=== PATIENT | male | born 1980 | race Caucasian/White ===

== ENCOUNTER 2016-05-07 12:50 | Emergency (ER) | payer MEDICARE, SELFPAY ==
[2016-05-07] MEDS ORDERED: Sodium Chloride 0.9% 10 ML Syringe FLUSH PRN (13:12)
[2016-05-07] MEDS ORDERED: Sodium Chloride 0.9% 1,000 ML IV ONE (13:12)
[2016-05-07 13:42] LABS: CHLORIDE,CL 104 mEq/L (98-106); SODIUM,NA 143 mEq/L (136-145)
--- NOTE | 2016-05-07 13:51 | EDM.PDOC ---
ED HPI SEIZURE COMPLAINT - General Chief Complaint: Syncope Stated Complaint: syncope Time Seen by Provider: 05/07/16 13:07 Source of Information: Reports: Patient History Limitations: Reports: No limitations - History of Present Illness INITIAL COMMENTS - FREE TEXT/NARRATIVE: Patient stated he was at work, and wasnt feeling well. He had desided to go home sick when the next thing he knew he woke up on the gound. He has an abrasion and swelling of his left cheek. Patient states he feels fine now, and has no further symptoms Symptom Onset Date: 05/07/16 Symptom Onset Time: 13:00 Timing/Duration: Reports: minutes: Event Occurred (Where): work Event (Witnessed/Unwitnessed): witnessed Location: Reports: face Severity: severe Pre Event Symptom(s): Reports: nausea/vomiting Event Symptoms: Reports: nausea/vomiting Post Event Symptoms: Reports: confused Associated Injuries: Reports: face - Related Data Allergies/ADRs: Allergies Allergy/AdvReac Type Severity Reaction Status Date / Time dust Allergy Swollen Uncoded 05/07/16 12:58 Eyes Home Meds: Home Meds . [No Known Home Meds] 10/27/15 [History] Past Medical History - Past Health History Medical/Surgical History: Denies Medical/Surgical History Social & Family History - Tobacco Use Smoking Status *Q: Never Smoker - Caffeine Use Caffeine Use: Reports: Soda - Recreational Drug Use Recreational Drug Use: No ED ROS GENERAL - Review of Systems Review Of Systems: See Below Constitutional: Reports: no symptoms HEENT: Reports: No symptoms Respiratory: Reports: No Symptoms Cardiovascular: Reports: No symptoms Endocrine: Reports: no symptoms GI/Abdominal: Reports: No symptoms Musculoskeletal: Reports: no symptoms Skin: Reports: erythema, lesions Neurological: Reports: No Symptoms Psychiatric: Reports: No symptoms Hematologic/Lymphatic: Reports: no symptoms Immunologic: Reports: no symptoms - Physical Exam Exam: See Below Exam Limited By: No limitations General Appearance: alert, no apparent distress Eye Exam: bilateral eye: PERRL Ears: normal external exam, normal canal Nose: normal inspection Throat/Mouth: Normal inspection Head Exam: facial abrasions, facial ecchymosis, facial swelling Neck: normal inspection Respiratory/Chest: no respiratory distress Cardiovascular: normal peripheral pulses GI/Abdominal: normal bowel sounds (Male) Exam: No hernia Rectal (Males) Exam: Normal exam Neuro Exam (Abbreviated): alert, oriented Back Exam: normal inspection Extremities: normal inspection Psychiatric: normal affect Skin Exam: Warm, Dry, Intact Course - Vital Signs Last Recorded V/S: Last Vital Signs Temp 97.3 F 05/07/16 12:55 Pulse 88 05/07/16 12:55 Resp 16 05/07/16 12:55 BP 154/97 H 05/07/16 13:30 Pulse Ox 98 05/07/16 12:55 Orthostatic Blood Pressure [ 154/81 Standing] Orthostatic Blood Pressure [ 153/98 Sitting] Orthostatic Blood Pressure [ 154/88 Supine] - Orders/Labs/Meds Orders: Active Orders 24 hr Category Date Time Status Orthostatic Vital Signs [RC] ASDIRECTED Care 05/07/16 13:10 Active Chest 2V [CR] Stat Exams 05/07/16 13:31 Taken Chest 2V w Apical Lordotic [CR] Stat Exams 05/07/16 13:21 Stop Req Head wo Cont [CT] Stat Exams 05/07/16 13:53 Taken CBC WITH AUTO DIFF [HEME] Stat Lab 05/07/16 13:31 Results MANUAL DIFFERENTIAL QA/NC [HEME] Stat Lab 05/07/16 13:31 Results Sodium Chloride 0.9% [Saline Flush] Med 05/07/16 13:12 Active 10 ml FLUSH ASDIRECTED PRN Saline Lock Insert [OM.PC] Routine Oth 05/07/16 13:12 Ordered EKG 12 Lead [EK] Routine Ther 05/07/16 13:16 Ordered Medication Orders Sodium Chloride (Saline Flush) 10 ml FLUSH ASDIRECTED PRN PRN Reason: Keep Vein Open Labs: Laboratory Tests 05/07/16 05/07/16 Range/Units 13:31 13:31 WBC 5.3 (5.0-10.0) 10^3/uL RBC 5.04 (4.50-6.00) 10^6/uL Hgb 14.3 (14.0-18.0) g/dL Hct 42.8 (40.0-54.0) % MCV 84.9 (82.0-94.0) fL MCH 28.4 (27.0-32.0) pg MCHC 33.4 (33.0-38.0) g/dL RDW Coeff of Chaparro 12.8 (11.0-15.0) % Plt Count 305 (150-400) 10^3/uL Add Manual Diff Yes Sodium 143 (136-145) mEq/L Potassium 3.3 L (3.5-5.0) mEq/L Chloride 104 (98-106) mEq/L Carbon Dioxide 28 (21-32) mmol/L BUN 9 (7-18) mg/dL Creatinine 0.8 (0.7-1.3) mg/dL Est Cr Clr Drug Dosing 130.54 mL/min Estimated GFR (MDRD) > 60 (>=60) mL/min Glucose 102 H (75-99) mg/dL Calcium 8.5 (8.4-10.1) mg/dL Meds: Medications Generic Name Dose Route Start Last Admin Trade Name Freq PRN Reason Stop Dose Admin Sodium Chloride 10 ml 05/07/16 13:12 Saline Flush FLUSH ASDIRECTED PRN Keep Vein Open Discontinued Medications Generic Name Dose Route Start Last Admin Trade Name Freq PRN Reason Stop Dose Admin Sodium Chloride 1,000 mls @ 999 mls/hr 05/07/16 13:12 05/07/16 13:43 Normal Saline IV 05/07/16 14:12 999 mls/hr .BOLUS ONE Administration Departure - Departure Time of Disposition: 14:28 Disposition: Home, Self-Care 01 Condition: good Clinical Impression: Syncopal episodes Forms: ED Department Discharge Additional Instructions: I find nothing that would cause your syncopal episode. Follow up with your regular doctor. Drink plenty of fluids. Eat regularly. Return to ER as needed. - My Orders Last 24 Hours: My Active Orders 05/07/16 13:10 Orthostatic Vital Signs [RC] ASDIRECTED 05/07/16 13:12 Sodium Chloride 0.9% [Saline Flush] 10 ml FLUSH ASDIRECTED PRN Saline Lock Insert [OM.PC] Routine 05/07/16 13:16 EKG 12 Lead [EK] Routine 05/07/16 13:21 Chest 2V w Apical Lordotic [CR] Stat 05/07/16 13:31 Chest 2V [CR] Stat CBC WITH AUTO DIFF [HEME] Stat MANUAL DIFFERENTIAL QA/NC [HEME] Stat 05/07/16 13:53 Head wo Cont [CT] Stat - Assessment/Plan Last 24 Hours: My Active Orders 05/07/16 13:10 Orthostatic Vital Signs [RC] ASDIRECTED 05/07/16 13:12 Sodium Chloride 0.9% [Saline Flush] 10 ml FLUSH ASDIRECTED PRN Saline Lock Insert [OM.PC] Routine 05/07/16 13:16 EKG 12 Lead [EK] Routine 05/07/16 13:21 Chest 2V w Apical Lordotic [CR] Stat 05/07/16 13:31 Chest 2V [CR] Stat CBC WITH AUTO DIFF [HEME] Stat MANUAL DIFFERENTIAL QA/NC [HEME] Stat 05/07/16 13:53 Head wo Cont [CT] Stat
[2016-05-07 15:00] VITALS: BP 154/96
== END 2016-05-07 14:47 | disposition home or self-care (01) ==
LOC: CC.ED 12:50
DX: R55 Syncope and collapse (principal); S00.81XA Abrasion of other part of head, initial encounter; Z91.09 Other allergy status, other than to drugs and biological substances; Y99.0 Civilian activity done for income or pay
CPT/HCPCS: 36415; 70450; 71020; 80048; 85025; 93005; 96360; 99285; J7030; 93010